=== PATIENT | female | born 1965 | race Caucasian/White ===

== ENCOUNTER 2017-07-02 02:58 | Emergency (ER) | payer OTHER ==
[~2017-07-02] VITALS: Ht 160 cm; Wt 55.0 kg
[2017-07-02] MEDS ORDERED: ONDANSETRON 2MG/ML, 2ML ONE (03:07)
[2017-07-02] MEDS ORDERED: SUMA25TA3 PO (03:10)
[2017-07-02] MEDS ORDERED: METOCLOPRAMIDE 5 MG/ML, 2ML ONE (03:14)
[2017-07-02] MEDS ORDERED: KETOROLAC 30 MG/1 ML ONE (03:14)
[2017-07-02 03:26] LABS: HEMATOCRIT 41.9 % (34.6-47.8); HEMOGLOBIN 14.4 g/dL (11.7-16.4); WHITE BLOOD COUNT 6.3 x10^3/uL (3.4-10)
[2017-07-02] MEDS ORDERED: METOCLOPRAMIDE 5 MG/ML, 2ML IVPush ONE (03:30)
[2017-07-02] MEDS ORDERED: ONDANSETRON 2MG/ML, 2ML IVPush ONE (03:30)
[2017-07-02] MEDS ORDERED: SODIUM CHLORIDE 0.9% 1,000ML IVBOLUS ONE ×2 (03:30→04:30)
[2017-07-02] MEDS ORDERED: KETOROLAC 30 MG/1 ML IVPush ONE (03:30)
[2017-07-02 03:37] LABS: ASPARTATE AMINO TRANSFERASE 26 U/L (15-37); BLOOD UREA NITROGEN 13 mg/dL (7-18)
[2017-07-02] MEDS ORDERED: PROMETHAZINE 25 MG/ML, 1ML ONE (04:21)
[2017-07-02] MEDS ORDERED: SUMATRIPTAN 6MG/0.5ML SQ ONE ×2 (04:30→04:31)
[2017-07-02] MEDS ORDERED: PROMETHAZINE 25 MG/ML, 1ML IM ONE (04:30)
[2017-07-02] MEDS ORDERED: MAGNESIUM SULFATE PMX 2GM/50ML 50 ML IV ONE (05:00)
[2017-07-02 06:31] VITALS: BP 105/72
== END 2017-07-02 07:31 | disposition home or self-care (01) ==
LOC: ED 07:25
DX: G43.009 Migraine without aura, not intractable, without status migrainosus (principal); R19.7 Diarrhea, unspecified; R11.2 Nausea with vomiting, unspecified; Z88.0 Allergy status to penicillin
CPT/HCPCS: 36415; 80053; 81003; 83690; 85025; 96361; 96365; 96372; 96375; 99285; J1885; J2405; J2550; J2765; J3030; J3475; J7030

== ENCOUNTER → 2017-08-25 | Outpatient (CLI) | payer OTHER ==
[~2017-08-25] MED LIST: SUMA25TA3 PO
== END ==
LOC: CFH 15:34
PROVIDERS: ATTEND Nurse Practitioner Family
DX: M94.211 Chondromalacia, right shoulder (principal); M75.51 Bursitis of right shoulder; M19.041 Primary osteoarthritis, right hand; S43.431A Superior glenoid labrum lesion of right shoulder, initial encounter; X58.XXXA Exposure to other specified factors, initial encounter; Y93.89 Activity, other specified; Y92.89 Other specified places as the place of occurrence of the external cause; Y99.8 Other external cause status

== ENCOUNTER → 2017-09-10 | Outpatient (CLI) | payer OTHER | END | disposition home or self-care (01) | LOC: CFH 13:34 | PROVIDERS: ATTEND Nurse Practitioner Family | DX: N63.10 Unspecified lump in the right breast, unspecified quadrant (principal) | CPT/HCPCS: 77066 ==